=== PATIENT | male | born 1950 | race Caucasian/White ===

== ENCOUNTER → 2024-03-31 12:35 | Outpatient (REF) | payer MEDICARE, BC, SELFPAY | LOC: HWRAD 12:35 | PROVIDERS: ATTENDING PHYSICIAN Chiropractor; FAMILY PHYSICIAN Internal Medicine | DX: M53.2X7 Spinal instabilities, lumbosacral region (principal); R10.2 Pelvic and perineal pain | CPT/HCPCS: 72110; 72170 ==

== ENCOUNTER → 2024-05-24 10:05 | Outpatient (REF) | payer MEDICARE, BC, SELFPAY | LOC: HWRAD 10:05 | PROVIDERS: ATTENDING PHYSICIAN Internal Medicine | DX: R10.31 Right lower quadrant pain (principal) | CPT/HCPCS: 76770 ==

== ENCOUNTER → 2024-10-06 10:07 | Outpatient (REF) | payer MEDICARE, BC, SELFPAY | LOC: HWRAD 10:07 | PROVIDERS: ATTENDING PHYSICIAN Specialist; FAMILY PHYSICIAN Internal Medicine | DX: N20.0 Calculus of kidney (principal) | CPT/HCPCS: 74018 ==

== ENCOUNTER → 2024-10-18 08:58 | Outpatient (REF) | payer MEDICARE, BC, SELFPAY | LOC: RCS 08:58 | PROVIDERS: ATTENDING PHYSICIAN Nurse Practitioner Family; FAMILY PHYSICIAN Internal Medicine | DX: R00.2 Palpitations (principal); R60.0 Localized edema | CPT/HCPCS: 93225; 93226 ==

== ENCOUNTER → 2024-10-23 07:46 | Outpatient (REF) | payer MEDICARE, BC, SELFPAY | LOC: HWRCS 07:46 | PROVIDERS: ATTENDING PHYSICIAN Nurse Practitioner Family | DX: R00.2 Palpitations (principal); R60.0 Localized edema | CPT/HCPCS: 93005; 93306 ==

== ENCOUNTER → 2024-11-20 11:10 | Outpatient (REF) | payer MEDICARE, BC, SELFPAY | LOC: HWRAD 11:10 | PROVIDERS: ATTENDING PHYSICIAN Physician Assistant; FAMILY PHYSICIAN Internal Medicine | DX: J32.8 Other chronic sinusitis (principal) | CPT/HCPCS: 70486 ==

== ENCOUNTER → 2024-11-22 12:05 | Outpatient (REF) | payer MEDICARE, BC, SELFPAY | LOC: HWRAD 12:05 | PROVIDERS: ATTENDING PHYSICIAN Nurse Practitioner Family; FAMILY PHYSICIAN Internal Medicine | DX: R06.09 Other forms of dyspnea (principal) | CPT/HCPCS: 71046 ==

== ENCOUNTER → 2025-04-04 09:26 | Outpatient (REF) | payer MEDICARE, BC, SELFPAY | LOC: RCS 09:26 | PROVIDERS: ATTENDING PHYSICIAN Internal Medicine Cardiovascular Disease; FAMILY PHYSICIAN Internal Medicine | DX: R06.09 Other forms of dyspnea (principal) | CPT/HCPCS: 93017; 93350 ==